=== PATIENT | male | born 2000 | race Native Hawaiian/Other Pacific Islander ===

== ENCOUNTER 2022-02-09 13:00 | Emergency (ER) | payer BC ==
[~2022-02-09] VITALS: Ht 165.1 cm; Wt 54.4 kg
[2022-02-09 13:18] VITALS: BP 91/60
[2022-02-09 14:43] VITALS: TEMP 98
== END 2022-02-09 14:43 | disposition home or self-care (01) ==
LOC: ED 13:00
DX: S05.01XD Injury of conjunctiva and corneal abrasion without foreign body, right eye, subsequent encounter (principal); W54.8XXD Other contact with dog, subsequent encounter; Y92.89 Other specified places as the place of occurrence of the external cause
CPT/HCPCS: 99282

== ENCOUNTER 2023-05-03 11:14 | Emergency (ER) | payer BC ==
[~2023-05-03] VITALS: Ht 165.1 cm; Wt 58.1 kg
[2023-05-03 11:33] VITALS: BP 100/56; TEMP 98.8
== END 2023-05-03 12:39 | disposition home or self-care (01) ==
LOC: ED 11:14
DX: J06.9 Acute upper respiratory infection, unspecified (principal); B34.9 Viral infection, unspecified
CPT/HCPCS: 87502; 87635; 87651; 99283; U0003